=== PATIENT | male | born 1995 | race Caucasian/White ===

== ENCOUNTER 2022-12-12 12:10 | Emergency (ER) | payer OTHER, SELFPAY ==
--- NOTE | 2022-12-12 12:13 | ED_ITS ---
HPI - General Adult General Chief complaint: Syncope Stated complaint: low blood pressure Time Seen by Provider: 12/12/22 17:18 Related Data Allergies Allergy/AdvReac Type Severity Reaction Status Date / Time No Known Allergies Allergy Verified 12/12/22 12:13 [facility] Past Medical History Medical History (Updated 12/13/22 @ 00:01 by Background Daemon) Asthma Social History Social History Smoked in Last 30 Days: No Use of substances other than those prescribed or required for medical reasons: No Advance Directives: No Advance Directives Information Provided: Yes Physical Exam ED Vital Signs: Vital Signs - 24 hr 12/12/22 12:14 12/12/22 17:20 12/12/22 17:21 Temperature 98 F 98.6 F Pulse Rate 73 63 59 Respiratory Rate 18 16 Blood Pressure 118/72 112/60 112/67 Pulse Oximetry 98 98 Oxygen Delivery Method Room Air Room Air 12/12/22 17:21 12/12/22 17:27 12/12/22 18:21 Temperature Pulse Rate 62 63 Respiratory Rate Blood Pressure 133/84 124/71 Pulse Oximetry 100 Oxygen Delivery Method Room Air 12/12/22 18:21 12/12/22 20:00 Temperature 98 F 98.0 F Pulse Rate 58 65 Respiratory Rate 14 16 Blood Pressure 124/79 117/69 Pulse Oximetry 100 98 Oxygen Delivery Method Room Air Room Air BMI result Body Mass Index 23.7 Course Course Course Narrative: RME - 27 yo male who presents to the ER for evaluation of 1-2 weeks of possible low blood pressure, 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 He loses vision intermittently and has passed out once. He reports lightheadedness and several episodes of pre-syncope that are worse with position changes. VSS in triage. Plan: lab workup, EKG, orthostatic VS Reevaluation(s) Reevaluation #1: see Dr. Mckeon's note for full evaluation and treatment plan Medical Decision Making Lab Data 12/12/22 14:39 12/12/22 14:39 Labs: Lab Results 12/12/22 12/12/22 12/12/22 Range/Units 14:39 14:39 17:35 WBC 11.8 H (4.8-10.8) X10*3/uL RBC 4.20 L (4.60-5.80) X10*6/uL Hgb 13.0 L (14.0-18.0) g/dl Hct 39.4 L (42.0-52.0) % MCV 93.8 (80.0-98.0) fL MCH 31.0 (27.0-33.0) pg MCHC 33.0 (31.0-36.0) g/dl RDW 11.9 (11.0-16.0) % Plt Count 273 (160-400) X10*3/uL MPV 10.2 (9.4-12.4) fL Immature Gran % (Auto) 0.3 (0.0-0.4) % Neut % (Auto) 62.9 (45-73) % Lymph % (Auto) 24.3 (20-40) % [place] % (Auto) 8.7 (2-11) % Eos % (Auto) 3.0 (0-4) % Baso % (Auto) 0.8 (0-2) % Lymph # (Auto) 2.9 (1.2-4.9) X10*3/uL [place] # (Auto) 1.0 (0.1-1.2) X10*3/uL Eos # (Auto) 0.4 (0.0-0.4) X10*3/uL Baso # (Auto) 0.1 (0.0-0.2) X10*3/uL Abs Immat Gran (auto) 0.03 (0.00-0.03) X10*3/uL Absolute Neuts (auto) 7.4 (2.0-8.3) x10*3/uL Absolute Nucleated RBC 0.000 (0.0-0.012) X10*3/uL Nucleated RBC % (auto) 0.0 (0.0-0.2) /100WBC D-Dimer High Sensitivty NG/ML Sodium 140 (135-145) mmol/L Potassium 3.9 (3.3-5.1) mmol/L Chloride 104 (96-108) mmol/L Carbon Dioxide 28 (22-29) mmol/L Anion Gap 12 (12-20) BUN 21 H (9-16) mg/dL Creatinine 0.78 (0.5-1.4) mg/dL Estim Creat Clear Calc 157.5 Estimated GFR > 60 Random Glucose 88 (60-115) mg/dL Calcium 9.8 (8.4-10.2) mg/dL Magnesium 2.1 (1.6-2.6) mg/dL Total Bilirubin 0.3 (0.0-1.0) mg/dL Direct Bilirubin 0.1 (0.0-0.5) mg/dL AST 20 (5-37) U/L ALT 17 (0-40) U/L Alkaline Phosphatase 78 (39-117) U/L Total Protein 7.3 (6.5-8.0) g/dL Albumin 4.5 (3.5-5.0) g/dL Urine Color Urine Appearance Urine pH (5.0-9.0) Ur Specific [place] (1.005-1.025) Urine Protein (Neg-Trace) mg/dL Urine Glucose (UA) (Negative) mg/dL Urine Ketones (Negative) mg/dL Urine Blood (Negative) Urine Nitrite (Negative) Ur Leukocyte Esterase (Negative) COVID-19 (SREEDHAR) (Negative) COVID-19 Clin Com Influenza Type A (NICOLE) Negative (Negative) Influenza Type B (NICOLE) Negative (Negative) Influenza A & B Note See Note 12/12/22 12/12/22 12/12/22 Range/Units 17:35 18:08 18:08 WBC (4.8-10.8) X10*3/uL RBC (4.60-5.80) X10*6/uL Hgb (14.0-18.0) g/dl Hct (42.0-52.0) % MCV (80.0-98.0) fL MCH (27.0-33.0) pg MCHC (31.0-36.0) g/dl RDW (11.0-16.0) % Plt Count (160-400) X10*3/uL MPV (9.4-12.4) fL Immature Gran % (Auto) (0.0-0.4) % Neut % (Auto) (45-73) % Lymph % (Auto) (20-40) % [place] % (Auto) (2-11) % Eos % (Auto) (0-4) % Baso % (Auto) (0-2) % Lymph # (Auto) (1.2-4.9) X10*3/uL [place] # (Auto) (0.1-1.2) X10*3/uL Eos # (Auto) (0.0-0.4) X10*3/uL Baso # (Auto) (0.0-0.2) X10*3/uL Abs Immat Gran (auto) (0.00-0.03) X10*3/uL Absolute Neuts (auto) (2.0-8.3) x10*3/uL Absolute Nucleated RBC (0.0-0.012) X10*3/uL Nucleated RBC % (auto) (0.0-0.2) /100WBC D-Dimer High Sensitivty < 150 NG/ML Sodium (135-145) mmol/L Potassium (3.3-5.1) mmol/L Chloride (96-108) mmol/L Carbon Dioxide (22-29) mmol/L Anion Gap (12-20) BUN (9-16) mg/dL Creatinine (0.5-1.4) mg/dL Estim Creat Clear Calc Estimated GFR Random Glucose (60-115) mg/dL Calcium (8.4-10.2) mg/dL Magnesium (1.6-2.6) mg/dL Total Bilirubin (0.0-1.0) mg/dL Direct Bilirubin (0.0-0.5) mg/dL AST (5-37) U/L ALT (0-40) U/L Alkaline Phosphatase (39-117) U/L Total Protein (6.5-8.0) g/dL Albumin (3.5-5.0) g/dL Urine Color Dark Yellow Urine Appearance Clear Urine pH 5.5 (5.0-9.0) Ur Specific [place] 1.025 (1.005-1.025) Urine Protein Negative (Neg-Trace) mg/dL Urine Glucose (UA) Negative (Negative) mg/dL Urine Ketones Negative (Negative) mg/dL Urine Blood Negative (Negative) Urine Nitrite Negative (Negative) Ur Leukocyte Esterase Negative (Negative) COVID-19 (SREEDHAR) Negative (Negative) COVID-19 Clin Com See Note Influenza Type A (NICOLE) (Negative) Influenza Type B (NICOLE) (Negative) Influenza A & B Note Discharge Plan Discharge Clinical Impression: Dizziness, Acute viral syndrome Patient Disposition: Home, Self-Care Instructions: Dizziness (ED) Additional Instructions: Please follow-up with your primary care physician tomorrow. If you have any worsening or new symptoms, please return to the emergency room or call 911 Stand Alone Forms: Work/School Release Interventions: ED Discharge Assessment Last Done: 12/12/22 21:31 Discharge Date/Time: 12/12/22 21:31
[2022-12-12 12:14] VITALS: BP 118/72; PULSE 73; RESP 18; TEMP 36.6; O2SAT 98; BMI 23.7
--- NOTE | 2022-12-12 12:16 | ECG_ITS ---
Test Reason : cp Blood Pressure : / mmHG Vent. Rate : 070 BPM Atrial Rate : 070 BPM P-R Int : 128 ms QRS Dur : 086 ms QT Int : 358 ms P-R-T Axes : 058 056 064 degrees QTc Int : 386 ms Normal sinus rhythm Normal ECG No previous ECGs available Referred By: Pearl Peralta Electronically Signed By:ANEESH VILLALTA MD
[2022-12-12 14:43] LABS: MANUAL DIFF FLAG NO
[2022-12-12 14:45] LABS: Basophils Absolute Auto 0.1 X10*3/uL (0.0-0.2); Basophils Percent Auto 0.8 % (0-2); Eosinophils Absolute Auto 0.4 X10*3/uL (0.0-0.4); Hematocrit 39.4 % (42.0-52.0); Imm Gran Abs Auto 0.03 X10*3/uL (0.00-0.03); Imm Gran Pct Auto 0.3 % (0.0-0.4); Lymphocytes Absolute Auto 2.9 X10*3/uL (1.2-4.9); Lymphocytes Percent Auto 24.3 % (20-40); Mean Corpuscular Volume 93.8 fL (80.0-98.0); Mean Platelet Volume 10.2 fL (9.4-12.4); Monocytes Percent Auto 8.7 % (2-11); Neutrophils Absolute Auto 7.4 x10*3/uL (2.0-8.3); Neutrophils Percent Auto 62.9 % (45-73); Platelet Count 273 X10*3/uL (160-400); Red Cell Distribution Width 11.9 % (11.0-16.0); White Blood Count 11.8 X10*3/uL (4.8-10.8)
[2022-12-12 15:05] LABS: Alanine Aminotransferase 17 U/L (0-40); Albumin Level 4.5 g/dL (3.5-5.0); Alkaline Phosphatase 78 U/L (39-117); Anion Gap 12 (12-20); Aspartate Amino Transferase 20 U/L (5-37); Bilirubin Direct 0.1 mg/dL (0.0-0.5); Bilirubin Total 0.3 mg/dL (0.0-1.0); Blood Urea Nitrogen 21 mg/dL (9-16); Calcium 9.8 mg/dL (8.4-10.2); Carbon Dioxide 28 mmol/L (22-29); Chloride 104 mmol/L (96-108); Creatinine Clr Calc Pharmacy 157.5; Estimated Glomerular Filt Rate > 60; Glucose Random 88 mg/dL (60-115); Magnesium 2.1 mg/dL (1.6-2.6); Potassium 3.9 mmol/L (3.3-5.1); Sodium 140 mmol/L (135-145); Total Protein 7.3 g/dL (6.5-8.0)
[2022-12-12 17:20] VITALS: BP 112/60; PULSE 63; RESP 16; TEMP 37; O2SAT 98
[2022-12-12 17:21] VITALS: BP 112/67; BP 133/84; PULSE 59; PULSE 62
[2022-12-12 17:27] VITALS: BP 124/71; PULSE 63
--- NOTE | 2022-12-12 17:28 | ED_ITS ---
HPI - Syncope General Chief Complaint: Syncope Stated Complaint: low blood pressure Time Seen by Provider: 12/12/22 17:18 Source: patient Mode of arrival: ambulatory Limitations: no limitations History of Present Illness HPI narrative: Patient comes to the emergency room complaining of lightheadedness/near syncope episodes. Patient states that is worse with standing up and bending over. Patient denies any chest pain or shortness of breath. Patient states that he has not been sick, has been eating and drinking well, no nausea vomiting diarrhea. Also complaining of generalized weakness for last couple of days Related Data Allergies Allergy/AdvReac Type Severity Reaction Status Date / Time No Known Allergies Allergy Verified 12/12/22 12:13 Review of Systems Review of Systems: Constitutional : No Weight loss, No Fever, No Chills, No Night Sweats, No Fatigue, No Malaise ENT/Mouth : No Hearing loss, No Ear Pain, No Nasal Congestion, No Sinus Pain, No Hoarseness, No sore throat, No Rhinorrhea, No Swallowing Difficulty Eyes: No Eye Pain, No Swelling, No Redness, No Foreign Body, No Discharge, No Vision Changes Cardiovascular : No Chest Pain, No SOB, No Dyspnea on Exertion, No Orthopnea, No Edema, No Palpitations Respiratory : No Cough, No Sputum, No Wheezing, No Smoke Exposure, No Dyspnea Gastrointestinal : No Nausea, No Vomiting, No Diarrhea, No Constipation, No abdominal Pain, No Hematochezia, No Melena Genitourinary : no irregular bleeding, No Dysuria, No Urinary Frequency, No Hematuria, No Urinary Incontinence, No Urgency, No Flank Pain, No Urinary Flow Changes, No Hesitancy Musculoskeletal : No joint pain, No Myalgias, No Joint Swelling Skin : No Skin Lesions, No rash Neuro : No Weakness, No Numbness, No Paresthesias, complaining of dizziness/lightheadedness, near syncopal episodes, no headache wrist with bending over or sitting up Psych : No Anxiety/Panic, No Depression, No SI/HI/AH/VH, No Social Issues, Heme/Lymph: No Bruising, No Bleeding,No Lymphadenopathy Endocrine : No Polyuria, No Polydipsia, No Temperature Intolerance PMFSH Past Medical History Medical History (Updated 12/12/22 @ 21:10 by Renetta Rodriguez MD) Asthma Social History Social History Smoked in Last 30 Days: No Use of substances other than those prescribed or required for medical reasons: No Advance Directives: No Advance Directives Information Provided: Yes Physical Exam Vital Signs: Vital Signs: Last Vital Signs Temp 98.0 F 12/12/22 20:00 Pulse 65 12/12/22 20:00 Resp 16 12/12/22 20:00 BP 117/69 12/12/22 20:00 Pulse Ox 98 12/12/22 20:00 O2 Del Method Room Air 12/12/22 20:00 BMI result Body Mass Index 23.7 Const: Other: Appearance: Alert. Oriented X3. No acute distress. Eyes: Pupils equal, round and reactive to light. ENT: Pharynx normal. Neck: Normal inspection. Neck supple. No lymph nodes noted. No crepitus CVS: Normal heart rate and rhythm. Pulses normal. Normal S1 and S2 Respiratory: No respiratory distress. Breath sounds normal. No Wheezing. No rales Abdomen: Soft and nontender. No rigidity. No distention. Skin: Skin warm and dry. Normal skin color. Normal skin turgor. Severe acne in the back Extremities: No lower extremity edema. No Lacerations. No Rash Neuro: Oriented X 3. No motor deficit. No sensory deficit. Moving all extremities. No slurred speech. 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 He loses vision intermittently and has passed out once. He reports lightheadedness and several episodes of pre-syncope that are worse with position changes. VSS in triage. -patient's labs, EKG and orthostatic vitals pending Medical Decision Making Medical Decision Making MDM Narrative: -EKG my interpretation: Normal sinus rhythm, heart rate 70, no ST segment depression or elevation, no T-wave inversion, QTC 386 -troponin negative, D-dimer negative, orthostatic vitals negative, serology negative for influenza and COVID -patient ambulatory, asymptomatic at this time. Patient likely has a viral syndrome Differential Diagnosis Differential Diagnoses: The differential diagnosis associated with the presentation includes (Orthostatic hypotension, cardiac arrhythmia, vertigo, viral syndrome) Admission/Observation Consideration of admission/observation: Escalation of care including admission/observation considered (Patient complaining of multiple syncopal episodes over last 2 weeks, new onset, admission has been considered.) Lab Data MDM Lab Attestation statement: I reviewed the patient's lab results. 12/12/22 14:39 12/12/22 14:39 Labs: Lab Results 12/12/22 12/12/22 12/12/22 Range/Units 14:39 14:39 17:35 WBC 11.8 H (4.8-10.8) X10*3/uL RBC 4.20 L (4.60-5.80) X10*6/uL Hgb 13.0 L (14.0-18.0) g/dl Hct 39.4 L (42.0-52.0) % MCV 93.8 (80.0-98.0) fL MCH 31.0 (27.0-33.0) pg MCHC 33.0 (31.0-36.0) g/dl RDW 11.9 (11.0-16.0) % Plt Count 273 (160-400) X10*3/uL MPV 10.2 (9.4-12.4) fL Immature Gran % (Auto) 0.3 (0.0-0.4) % Neut % (Auto) 62.9 (45-73) % Lymph % (Auto) 24.3 (20-40) % [place] % (Auto) 8.7 (2-11) % Eos % (Auto) 3.0 (0-4) % Baso % (Auto) 0.8 (0-2) % Lymph # (Auto) 2.9 (1.2-4.9) X10*3/uL [place] # (Auto) 1.0 (0.1-1.2) X10*3/uL Eos # (Auto) 0.4 (0.0-0.4) X10*3/uL Baso # (Auto) 0.1 (0.0-0.2) X10*3/uL Abs Immat Gran (auto) 0.03 (0.00-0.03) X10*3/uL Absolute Neuts (auto) 7.4 (2.0-8.3) x10*3/uL Absolute Nucleated RBC 0.000 (0.0-0.012) X10*3/uL Nucleated RBC % (auto) 0.0 (0.0-0.2) /100WBC D-Dimer High Sensitivty NG/ML Sodium 140 (135-145) mmol/L Potassium 3.9 (3.3-5.1) mmol/L Chloride 104 (96-108) mmol/L Carbon Dioxide 28 (22-29) mmol/L Anion Gap 12 (12-20) BUN 21 H (9-16) mg/dL Creatinine 0.78 (0.5-1.4) mg/dL Estim Creat Clear Calc 157.5 Estimated GFR > 60 Random Glucose 88 (60-115) mg/dL Calcium 9.8 (8.4-10.2) mg/dL Magnesium 2.1 (1.6-2.6) mg/dL Total Bilirubin 0.3 (0.0-1.0) mg/dL Direct Bilirubin 0.1 (0.0-0.5) mg/dL AST 20 (5-37) U/L ALT 17 (0-40) U/L Alkaline Phosphatase 78 (39-117) U/L Total Protein 7.3 (6.5-8.0) g/dL Albumin 4.5 (3.5-5.0) g/dL Urine Color Urine Appearance Urine pH (5.0-9.0) Ur Specific [place] (1.005-1.025) Urine Protein (Neg-Trace) mg/dL Urine Glucose (UA) (Negative) mg/dL Urine Ketones (Negative) mg/dL Urine Blood (Negative) Urine Nitrite (Negative) Ur Leukocyte Esterase (Negative) COVID-19 (SREEDHAR) (Negative) COVID-19 Clin Com Influenza Type A (NICOLE) Negative (Negative) Influenza Type B (NICOLE) Negative (Negative) Influenza A & B Note See Note 12/12/22 12/12/22 12/12/22 Range/Units 17:35 18:08 18:08 WBC (4.8-10.8) X10*3/uL RBC (4.60-5.80) X10*6/uL Hgb (14.0-18.0) g/dl Hct (42.0-52.0) % MCV (80.0-98.0) fL MCH (27.0-33.0) pg MCHC (31.0-36.0) g/dl RDW (11.0-16.0) % Plt Count (160-400) X10*3/uL MPV (9.4-12.4) fL Immature Gran % (Auto) (0.0-0.4) % Neut % (Auto) (45-73) % Lymph % (Auto) (20-40) % [place] % (Auto) (2-11) % Eos % (Auto) (0-4) % Baso % (Auto) (0-2) % Lymph # (Auto) (1.2-4.9) X10*3/uL [place] # (Auto) (0.1-1.2) X10*3/uL Eos # (Auto) (0.0-0.4) X10*3/uL Baso # (Auto) (0.0-0.2) X10*3/uL Abs Immat Gran (auto) (0.00-0.03) X10*3/uL Absolute Neuts (auto) (2.0-8.3) x10*3/uL Absolute Nucleated RBC (0.0-0.012) X10*3/uL Nucleated RBC % (auto) (0.0-0.2) /100WBC D-Dimer High Sensitivty < 150 NG/ML Sodium (135-145) mmol/L Potassium (3.3-5.1) mmol/L Chloride (96-108) mmol/L Carbon Dioxide (22-29) mmol/L Anion Gap (12-20) BUN (9-16) mg/dL Creatinine (0.5-1.4) mg/dL Estim Creat Clear Calc Estimated GFR Random Glucose (60-115) mg/dL Calcium (8.4-10.2) mg/dL Magnesium (1.6-2.6) mg/dL Total Bilirubin (0.0-1.0) mg/dL Direct Bilirubin (0.0-0.5) mg/dL AST (5-37) U/L ALT (0-40) U/L Alkaline Phosphatase (39-117) U/L Total Protein (6.5-8.0) g/dL Albumin (3.5-5.0) g/dL Urine Color Dark Yellow Urine Appearance Clear Urine pH 5.5 (5.0-9.0) Ur Specific [place] 1.025 (1.005-1.025) Urine Protein Negative (Neg-Trace) mg/dL Urine Glucose (UA) Negative (Negative) mg/dL Urine Ketones Negative (Negative) mg/dL Urine Blood Negative (Negative) Urine Nitrite Negative (Negative) Ur Leukocyte Esterase Negative (Negative) COVID-19 (SREEDHAR) Negative (Negative) COVID-19 Clin Com See Note Influenza Type A (NICOLE) (Negative) Influenza Type B (NICOLE) (Negative) Influenza A & B Note Independent Interpretation I performed an independent interpretation of an: EKG Discharge Plan Discharge Clinical Impression: Dizziness, Acute viral syndrome Patient Disposition: Home, Self-Care Instructions: Dizziness (ED) Additional Instructions: Please follow-up with your primary care physician tomorrow. If you have any worsening or new symptoms, please return to the emergency room or call 911 Stand Alone Forms: Work/School Release
--- NOTE | 2022-12-12 17:36 | MHC.EDTECH ---
this pct just assumed care of patient ,vitals sign taken orthostatics vitals sign taken ,flu and covid swab collected and sent to lab ,
--- NOTE | 2022-12-12 18:14 | MHC.EDTECH ---
PATIENT D DIMER DRAWN AND URINE SAMPLE COLLECTED AND SENT TO LAB ,PT RESTING QUIETLY IN BED .
[2022-12-12 18:16] LABS: COVID-19 Test Negative (Negative); IDNOW Serial# 9DB6401D
[2022-12-12 18:17] LABS: IDNOW Serial# BCCEAD1C; Influenza A Negative (Negative); Influenza B2 Negative (Negative)
[2022-12-12 18:20] LABS: Appearance Urine Clear; Color Urine Dark Yellow; Glucose Urine UA Negative (Negative); Leukocyte Esterase Urine Negative (Negative); Nitrite Urine Negative (Negative); PH 5.5 (5.0-9.0); Specific Gravity - Urine 1.025 (1.005-1.025); Urine Blood Negative (Negative); Urine Ketones Negative (Negative); Urine Protein Negative (Neg-Trace)
[2022-12-12 18:21] VITALS: BP 124/79; PULSE 58; RESP 14; TEMP 36.6; O2SAT 100
[2022-12-12 18:29] LABS: D Dimer High Sensitivity < 150 NG/ML
[2022-12-12 20:00] VITALS: BP 117/69; PULSE 65; RESP 16; TEMP 36.7; O2SAT 98
--- NOTE | 2022-12-12 20:55 | MHC.EDTECH ---
patient vitals sign taken ,pt is having a sandwich and a dustin sy for snack ,pt mom at bedside .
== END 2022-12-12 21:31 | disposition home or self-care (01) ==
PROVIDERS: Physician Assistant; Emergency Provider Emergency Medicine
DX: B34.9 Viral infection, unspecified (principal); R42 Dizziness and giddiness; Z20.822 Contact with and (suspected) exposure to COVID-19
CPT/HCPCS: 36415; 80048; 80076; 81003; 83735; 85025; 85379; 87502; 87635; 93005; 99284; 99285

== ENCOUNTER → 2022-12-12 12:16 | Outpatient (BNV) | payer OTHER, SELFPAY | PROVIDERS: Visit Provider Internal Medicine Cardiovascular Disease | DX: R07.9 Chest pain, unspecified (principal) | CPT/HCPCS: 93010 ==

== ENCOUNTER 2023-11-01 13:06 | Outpatient (AMB) | payer OTHER, SELFPAY ==
[2023-11-01 13:14] VITALS: BP 100/66; PULSE 77; RESP 14; TEMP 36.1; O2SAT 99; BMI 18.7
--- NOTE | 2023-11-01 13:14 | A.OFFPC_ITS ---
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 from nose & Anus Small Products Assembler Required: No Accompanied by: Self / Same As Patient Allergies No Known Allergies Allergy (Verified 11/01/23 13:28) Medication List - Last Reconciled 11/01/23 by Dinah Fraser CNP [id number] 250-250-65 mg (Excedrin Extra Strength) 1 tab PO Q4-6H PRN Tobacco use date assessed: 11/01/23 Dental Screening Dental Screen Date: 11/01/23 Did you have a dental visit in the last 12 months?: No Did you have a dental problem in the last 6 months where you did not have access to dental care?: No Was dental information given to patient?: Yes HPI HPI Comments History of Present Illness Details New patient Prior PCP:?LOR Maynard, ? Leonard Martinez (practice name) Last office visit/CPE: About 3-4 years Acute issue(s): Migraine -He is on Excedrin extra-strength 1 tab p.o. Q 4-6 hours p.r.n. He notes frequent migraine, about 3 times daily. He had migraine at childhood which resolved, recured 2 years ago, and progressively worsened in the past 1 year. He reports adequate hydration Lightheadedness -Ongoing for the past 1 year, especially when changing positions and prolonged standing. 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 He became lightheaded as he was picking up a box while working a year ago and his boss found him unconscious. He has been on medical leave since. He denies head injury or trauma. 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 He notes that he is on combivent and a nebulizer (does not recall name). He denies h/o asthma SurgHx: None FHx: None SocHx: Former cigarette smoker, smoked an average of 1 pack a day for about 11 years and quit 1 year ago. Does not drink alcohol. He vapes about 2 puffs daily and has been vaping for 4 years. No recreational drugs. He notes that he is sexually active, in a monogamous relationship, and has no concerns for STD [facility] Medical History (Updated 11/01/23 @ 14:09 by Dinah Fraser CNP) IBS (irritable bowel syndrome) Imbalance Memory loss Lyme disease Migraines Palpitations Light headedness Asthma Surgical History [place] teeth extracted Social History Housing: House Patient Tobacco Use Status: Never used Tobacco e-Cigarette/Vaping Use: Currently Using service: Yes Current occupational status: other Cognitive needs: No Hearing needs: No Vision needs: No Questionnaire PHQ-9 Over the last 2 weeks, how often have you been bothered by any of the following problems? 1. Little interest or pleasure in doing things: not at all 2. Feeling down, depressed, or hopeless: not at all 3. Trouble falling or staying asleep, or sleeping too much: not at all 4. Feeling tired or having little energy: nearly every day 5. Poor appetite or overeating: not at all 6. Feeling bad about yourself - or that you are a failure or have let yourself or your family down: not at all 7. Trouble concentrating on things, such as reading the newspaper or watching television: not at all 8. Moving or speaking so slowly that other people could have noticed. Or the opposite - being so fidgety or restless that you have been moving around a lot more than usual: not at all 9. Thoughts that you would be better off or of hurting yourself in some way: not at all Total score: 3 Depression Screening Interpretation: Negative Depression Screening Done: Yes 65034 - PHQ-9 Billing: Yes Source: Developed by Drs. Cal Melgoza, Ana Ramos, Neo Welch and colleagues, with an educational ayah from [email or web address]. Thrive Questionnaire Date Thrive assessed: 11/01/23 I am a: Patient What is your living situation today?: I have a steady place to live Within the past 12 months, did the food you bought not last and you didn't have the money to get more?: Never true Within the past 12 months, did you worry whether your food would run out before you got money to buy more?: Never true Do you have trouble paying for medicines?: No Do you have trouble getting transportation to medical appointments?: No Do you have trouble paying your heating and electricity bill?: No Do you have trouble taking care of your child, family member or friend?: No Do you have trouble with day-to-day activities such as bathing, preparing meals, shopping, managing finances, etc.?: No Are you currently unemployed and looking for a job?: No Are you interested in more education?: No Please select the resources that you would like help with: None Currently or been in a relationship where the following occur: no concerns reported THRIVE Score: 0 AUDIT C Alcohol Use Questionnaire (AUDIT-C) 1. How often do you have a drink containing alcohol?: Never 3. How often do you have six or more drinks on one occasion?: Never Total Score: 0 [place]-7 AMB Questionnaire [place]-7 Date [place] - 7 assessed: 11/01/23 Feeling nervous, anxious, or on edge: 0 = Not at all Not being able to stop or control worryin = Not at all Worrying too much about different things: 0 = Not at all Trouble relaxin = Not at all Being so restless that it is hard to sit still: 0 = Not at all Becoming easily annoyed or irritable: 3 = Nearly every day Feeling afraid as if something awful might happen: 0 = Not at all Total [place]-7 score (0-4 normal; 5-9 mild; 10-14 moderate; 15-21 severe): 3 Source: Developed by Drs. aCl Melgoza, Ana Ramos, Neo Welch and colleagues, with an educational ayah from [email or web address]. [place]-7 Assessment Billing [place]-7 Assessment Tool: [place]-7 Assessment 29597 ACT Questionnaire In the past 4 weeks, how much of the time did your asthma keep you from getting as much done at work, school or at home?: None of the time During the past 4 weeks, how often have you had shortness of breath?: 1-2 times a week During the past 4 weeks, how often did your asthma symptoms wake you up at night or earlier than usual in the morning?: Not at all During the past 4 weeks, how often have you had to use your rescue inhaler or nebulizer medication?: 2-3 times a week How would you rate your asthma control during the past 4 weeks?: Well controlled ACT Interpretation: Positive Score: 21 Physical exam (Primary Care) Vital Signs: Last Vital Signs Temp 97 F 11/01/23 13:14 Pulse 77 11/01/23 13:14 Resp 14 11/01/23 13:14 BP 100/66 11/01/23 13:14 Pulse Ox 99 11/01/23 13:14 Oxygen Delivery Method Room Air 11/01/23 13:14 BMI result Body Mass Index 18.7 Tobacco/Smoking Status: Tobacco use Status Tobacco use date assessed 11/01/23 11/01/23 13:27 Patient Tobacco Use Status Never used Tobacco 11/01/23 13:27 e-Cigarette/Vaping Use Currently Using 11/01/23 13:27 PHQ-9: PHQ-9 Score PHQ-9: Total score 3 11/01/23 15:26 Depression Screening Interpretation: Negative Thrive Assessment: Date of Thrive Assessment Date Thrive assessed 11/01/23 11/01/23 13:27 Currently or been in a relationship where the following occur: no concerns reported Assessment and Plan Assessment & Plan (1) Normal physical examination, routine: Code(s): Z00.00 - Encounter for general adult medical examination without abnormal findings Plan: No significant physical restrictions or limitations noted Continue current treatment regimen Healthy diet and routine exercise encouraged Encouraged to establish with a dentist for routine dental care Advised to get lab work done and follow-up in 2 weeks for labs review or sooner with symptoms or concerns (2) Migraines: Code(s): G43.909 - Migraine, unspecified, not intractable, without status migrainosus Plan: Frequent migraines, at least 3 times a day Excedrin has not been effective Sumatriptan ordered. Advised to take as prescribed. Instructed on the risks, benefits, and potential adverse reaction of the medication Advised to stop taking Excedrin Follow-up with worsening or new symptoms Verbalized understanding and agreed with the treatment plan (3) Light headedness: Code(s): R42 - Dizziness and giddiness Plan: Chronic lightheadedness especially with changing positions and prolonged standing No head trauma or injury He was evaluated in the ED with no underlying cause Advised to change positions slowly to prevent lightheadedness Will check labs and make changes as needed Follow-up with worsening or new symptoms Verbalized understanding and agreed with the treatment plan (4) IBS (irritable bowel syndrome): Code(s): K58.9 - Irritable bowel syndrome without diarrhea Plan: No acute symptoms (5) Engages in vaping: Code(s): Z72.89 - Other problems related to lifestyle Plan: He vapes about 2 puffs daily and has been vaping for 4 years Instructed on the health risks and complications of vaping and encouraged to stop vaping He has no desire to stop vaping at this time and notes that he would do so when he is ready He declines medication treatment at this time He may contact his PCP if he changes mind on medication management Verbalized understanding and agreed with the plan (6) Laboratory tests ordered as part of a complete physical exam (CPE): Code(s): Z00.00 - Encounter for general adult medical examination without abnormal findings Plan: Fasting labs ordered in preparation of a complete physical exam. Advised to fast for at least 10 hours before getting labs drawn. May drink water Verbalized understanding and agreed with treatment plan. Orders: Orders Lipid Panel Today Z00.00 - Encounter for general adult medical examination without abnormal findings UA CC w/rflx Micro + Cult Today Z00.00 - Encounter for general adult medical examination without abnormal findings Complete Blood Count Auto Diff Today Z00.00 - Encounter for general adult medical examination without abnormal findings Comprehensive [place]. Panel Fast Today Z00.00 - Encounter for general adult medical examination without abnormal findings TSH reflex Free T4 Today Z00.00 - Encounter for general adult medical examination without abnormal findings Medications: New sumatriptan succinate take 1 tab at onset of headache; if no relief may repeat 1 tab after at least 2 hrs; max = 4 tabs/24 hr PO 30 tabs 3RF Coding Level of Care Code New Pt Level 4 (02100) New Pt Prev Care 18-39yr(61758 Diagnoses Normal physical examination, routine Z00.00 Migraines G43.909 Light headedness R42 IBS (irritable bowel syndrome) K58.9 Engages in vaping Z72.89 Laboratory tests ordered as part of a complete physical exam (CPE) Z00.00 Additional Codes [place]-7 Assessment Billing - [place]-7 Assessment Tool: [place]-7 Assessment 68473 ([id number])
== END 2023-11-01 14:11 | disposition home or self-care (01) ==
PROVIDERS: Visit Provider Nurse Practitioner Family
DX: Z00.00 Encounter for general adult medical examination without abnormal findings (principal); G43.909 Migraine, unspecified, not intractable, without status migrainosus; R42 Dizziness and giddiness; K58.9 Irritable bowel syndrome, unspecified; Z72.89 Other problems related to lifestyle
CPT/HCPCS: 99204; 99385

== ENCOUNTER 2023-11-18 13:32 | Outpatient (REF) | payer OTHER, SELFPAY ==
[2023-11-18 17:59] LABS: MANUAL DIFF FLAG NO
[2023-11-18 18:03] LABS: Appearance Urine Clear; Color Urine Yellow; Glucose Urine UA Negative (Negative); Leukocyte Esterase Urine Negative (Negative); Nitrite Urine Negative (Negative); PH 5.5 (5.0-9.0); Specific Gravity - Urine >= 1.030 (1.005-1.025); Urine Blood Negative (Negative); Urine Ketones Trace mg/dL (Negative); Urine Protein Negative (Neg-Trace)
[2023-11-18 18:04] LABS: Basophils Absolute Auto 0.1 X10*3/uL (0.0-0.2); Basophils Percent Auto 0.7 % (0-2); Eosinophils Absolute Auto 0.3 X10*3/uL (0.0-0.4); Eosinophils Percent Auto 4.2 % (0-4); Hematocrit 41.8 % (42.0-52.0); Hemoglobin 14.2 g/dl (14.0-18.0); Imm Gran Abs Auto 0.02 X10*3/uL (0.00-0.03); Imm Gran Pct Auto 0.3 % (0.0-0.4); Lymphocytes Absolute Auto 2.6 X10*3/uL (1.2-4.9); Lymphocytes Percent Auto 36.8 % (20-40); Mean Corpuscular Hemoglobin 31.6 pg (27.0-33.0); Mean Corpuscular Volume 93.1 fL (80.0-98.0); Mean Platelet Volume 10.8 fL (9.4-12.4); Monocytes Absolute Auto 0.6 X10*3/uL (0.1-1.2); Monocytes Percent Auto 8.7 % (2-11); Neutrophils Absolute Auto 3.5 x10*3/uL (2.0-8.3); Neutrophils Percent Auto 49.3 % (45-73); Platelet Count 282 X10*3/uL (160-400); Red Blood Count 4.49 X10*6/uL (4.60-5.80); Red Cell Distribution Width 11.7 % (11.0-16.0); White Blood Count 7.1 X10*3/uL (4.8-10.8)
[2023-11-18 18:25] LABS: Alanine Aminotransferase 20 U/L (0-40); Alkaline Phosphatase 59 U/L (39-117); Anion Gap 14 (12-20); Aspartate Amino Transferase 22 U/L (5-37); Bilirubin Total 0.5 mg/dL (0.0-1.0); Blood Urea Nitrogen 21 mg/dL (9-16); Calcium 10.5 mg/dL (8.4-10.2); Carbon Dioxide 29 mmol/L (22-29); Chloride 103 mmol/L (96-108); Cholesterol 141 mg/dL (<200); Estimated Glomerular Filt Rate > 60; Glucose Fasting 78 mg/dL (60-99); HDL Cholesterol 46 mg/dL (>40); LDL Cholesterol Calculated 82 mg/dL (<100); Potassium 3.9 mmol/L (3.3-5.1); Sodium 142 mmol/L (135-145); Total Protein 7.7 g/dL (6.5-8.0); Triglycerides 69 mg/dL (<150)
[2023-11-18 18:41] LABS: TSH reflex Free T4 1.88 uIU/mL (0.32-4.0)
== END 2023-11-18 13:33 | disposition home or self-care (01) ==
LOC: HO.WFDLDS 13:32
PROVIDERS: Visit Provider Nurse Practitioner Family
DX: Z00.00 Encounter for general adult medical examination without abnormal findings (principal)
CPT/HCPCS: 36415; 80053; 80061; 81003; 84443; 85025

== ENCOUNTER 2023-11-25 11:10 | Outpatient (AMB) | payer OTHER, SELFPAY ==
--- NOTE | 2023-11-25 11:17 | A.OFFPC_ITS ---
Vital Signs 11/25/23 11:24 Weight 135 lb BP 108/70 Blood Pressure Location Rt brachial Position Sitting Respiration 12 Pulse 100 Pulse Source Pulse Oximeter Temp 98.1 F Temp Source Temporal Artery Scan Pulse Oximetry (%) 98 Oxygen Delivery Method Room Air Intake Visit Reasons: follow up blood work Intake Note: patient here for follow on labs. Brass Reclaimer Required: No Allergies No Known Allergies Allergy (Verified 11/25/23 11:43) Medication List - Last Reconciled 11/25/23 by Dinah Fraser CNP sumatriptan succinate take 1 tab at onset of headache; if no relief may repeat 1 tab after at least 2 hrs; max = 4 tabs/24 hr PO Tobacco use date assessed: 11/01/23 Dental Screening Dental Screen Date: 11/01/23 HPI HPI Comments History of Present Illness Details 28-year-old male presents for review of recent lab work. He notes that his migraine symptoms has not improved. He gets migraines at least once daily. He has been taking Excedrin with significant improvement, 7/10 to 2/10 on the pain scale. He has not picked up Sumatriptan that was recently prescribed. He reports continued lightheadedness and 2/10 migraine at this time. No other symptoms at this time. [facility] Medical History (Updated 11/01/23 @ 14:09 by Dinah Fraser CNP) IBS (irritable bowel syndrome) Imbalance Memory loss Lyme disease Migraines Palpitations Light headedness Asthma Surgical History [place] teeth extracted Social History Housing: House Patient Tobacco Use Status: Never used Tobacco e-Cigarette/Vaping Use: Currently Using service: Yes Current occupational status: other Cognitive needs: No Hearing needs: No Vision needs: No Questionnaire Thrive Questionnaire Date Thrive assessed: 11/01/23 [place]-7 AMB Questionnaire [place]-7 Date [place] - 7 assessed: 11/01/23 Source: Developed by Drs. Cal Melgoza, Ana Ramos, Neo Welch and colleagues, with an educational ayah from [employer]. Review of Systems Const Details: Const Denies chills, Denies fatigue, Denies fever(s), Reports headache(s) and Denies weakness ENT Denies dizziness and Denies headache(s) Card Denies chest pain, Reports lightheadedness, Denies dyspnea and Denies other (Palpitations) Resp Denies cough, Denies dyspnea, Denies wheezing and Denies other ( shortness of breath) GI Denies abdominal pain, Denies melena, Denies hematochezia, Denies change in bowel habits, Denies dyspepsia and Denies nausea Denies hematuria and Denies dysuria Musc Denies abnormal gait, Denies myalgias, Denies arthralgias, Denies numbness and Denies tingling Skin/Breast Denies rash, Denies unusual bruising and Denies wounds Neuro Denies abnormal gait, Denies dizziness, Denies headache(s), Denies memory loss, Denies numbness, Denies Sensory deficit (Neuro), Denies tingling and Denies weakness Psych Denies anxiety, Denies depression, Denies memory loss Endo Denies cold intolerance, Denies fatigue, Denies heat intolerance, Denies polydipsia and Denies polyuria Aller/Immun Denies wheezing Physical exam (Primary Care) Vital Signs: Last Vital Signs Temp 98.1 F 11/25/23 11:24 Pulse 100 11/25/23 11:24 Resp 12 11/25/23 11:24 BP 108/70 11/25/23 11:24 Pulse Ox 98 11/25/23 11:24 Oxygen Delivery Method Room Air 11/25/23 11:24 Tobacco/Smoking Status: Tobacco use Status Tobacco use date assessed 11/01/23 11/25/23 11:18 Patient Tobacco Use Status Never used Tobacco 11/25/23 11:18 e-Cigarette/Vaping Use Currently Using 11/25/23 11:18 Thrive Assessment: Date of Thrive Assessment Date Thrive assessed 11/01/23 11/25/23 11:18 Const Other: General: no acute distress and well developed Nutritional Appearance: well nourished Orientation/consciousness: patient oriented x3 HENMT Head: Yes normocephalic and Yes atraumatic Eyes General: appearance normal, both eyes and all related structures Pupils: Equal, round and reactive pupils present EOM: EOMs intact bilaterally Resp Effort & Inspection: normal respiratory effort Auscultation: clear to auscultation bilaterally Cardio Rate: regular rate Rhythm: regular rhythm Heart sounds: S1 normal heart sound present, S2 normal heart sound present, no gallops, no murmurs and no rubs GI Palpation (GI): No Abdominal aortic bruit present, Soft to palpation, nontender, No hepatosplenomegaly present and No Rebound tenderness present Auscultation: normal bowel sounds General: Yes no CVA tenderness Back/Spine/Pelvis Back: no CVA tenderness Cervical Spine: cervical ROM normal and No Cervical spine tenderness Thoracic/Lumbar Spine: thoraco-lumbar ROM normal, No pain with thoraco-lumbar ROM, No thoracic spinal tenderness and No lumbar spinal tenderness Extrem General: Yes normal to inspection, No edema and No calf tenderness Skin General: warm and dry. Normal skin color. Normal skin turgor Neuro General: patient oriented x3, gait normal and no focal neuro deficit Cranial nerves: Yes Equal, round and reactive pupils present Cognition (Neuro): normal cognition Gait exam (Neuro): Normal gait present Sensory Exam: No Sensory deficit (Neuro) Psych Appearance: grossly normal Affect: normal affect Attitude: cooperative Thought process: Normal thought process present Assessment and Plan Assessment & Plan (1) Light headedness: Code(s): R42 - Dizziness and giddiness Plan: Chronic lightheadedness Reports continued lightheadedness and 2/10 migraine at this time He has been taking Excedrin with significant improvement. He has not picked up recently prescribed sumatriptan Encouraged to pick up man sumatriptan and take as prescribed Referred to [facility] Neurology Encouraged to schedule his next physical for a year from his last Return with worsening or new symptoms Verbalized understanding and agreed with the treatment plan Recent lab results with unremarkable findings (2) Migraines: Code(s): G43.909 - Migraine, unspecified, not intractable, without status migrainosus Plan: As above Orders: Referrals Neurology Referral G43.909 - Migraine, unspecified, not intractable, without status migrainosus, R42 - Dizziness and giddiness Coding Level of Care Code Est Pt Level 4 (93822) Complex EM visit Add On G2211 Diagnoses Light headedness R42 Migraines G43.909
[2023-11-25 11:24] VITALS: BP 108/70; PULSE 100; RESP 12; TEMP 36.7; O2SAT 98
== END 2023-11-25 11:59 | disposition home or self-care (01) ==
PROVIDERS: Visit Provider Nurse Practitioner Family
DX: R42 Dizziness and giddiness (principal); G43.909 Migraine, unspecified, not intractable, without status migrainosus
CPT/HCPCS: 99214; G2211

== ENCOUNTER 2024-02-04 10:56 | Outpatient (AMB) | payer OTHER, SELFPAY ==
--- NOTE | 2024-02-04 11:04 | A.OFFPC_ITS ---
Vital Signs 02/04/24 11:09 Height 6 ft Weight 135 lb 2 oz BMI 18.3 BP 100/72 Blood Pressure Location Lt brachial Position Sitting Respiration 16 Pulse 66 Pulse Source Pulse Oximeter Temp 97.6 F Temp Source Oral Pulse Oximetry (%) 99 Oxygen Delivery Method Room Air Intake Visit Reasons: Follow Up Rx Intake Note: patient here to follow up on script. Probate Lawyer Required: No Allergies No Known Allergies Allergy (Verified 02/04/24 11:07) Tobacco use date assessed: 02/04/24 Dental Screening Dental Screen Date: 02/04/24 Did you have a dental visit in the last 12 months?: No Did you have a dental problem in the last 6 months where you did not have access to dental care?: No Was dental information given to patient?: Patient has dentist HPI HPI Comments History of Present Illness Details 28-year-old male, accompanied by his mot her, presents for migraines follow-up His mother is his healthcare proxy He notes notes that he stopped taking Sumatriptan after two doses due to adverse reactions. He experienced worsening migraine and burning sensation to the tip of the fingers of both hands. He has been taking Excredin migraine without impro vement. His mom notes that the patient has had migraines since adolescence. According to the patient's mom, the patient was seen by Neurology, briefly, at [facility]. 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 He reports associated unsteady gait, fatigue, and weakness. He also reports ongoing dark red blood stools for the past 6 months with occasional abdominal pain and diarrhea, no constipation, no n/v He denies recreational drugs The patient's mom notes that she has chronic Lyme disease The patient's mom notes that the patient has been using a cane for ambulation. She notes that a wheelchair will be more effective. She also requests a shower chair with back support [facility] Medical History (Updated 02/04/24 @ 13:38 by Dinah Fraser CNP) IBS (irritable bowel syndrome) Imbalance Memory loss Lyme disease Migraines Palpitations Light headedness Asthma Surgical History Cushing teeth extracted Social History Housing: House Patient Tobacco Use Status: Never used Tobacco e-Cigarette/Vaping Use: Currently Using service: Yes Current occupational status: other Cognitive needs: No Hearing needs: No Vision needs: No Questionnaire Thrive Questionnaire Date Thrive assessed: 11/01/23 AUDIT C Alcohol Use Questionnaire (AUDIT-C) 1. How often do you have a drink containing alcohol?: Never Total Score: 0 [place]-7 AMB Questionnaire [place]-7 Date [place] - 7 assessed: 11/01/23 Source: Developed by Drs. Cal Melgoza, Ana Ramos, Neo Welch and colleagues, with an educational ayah from [email or web address]. Review of Systems Const Details: Const Denies chills, Denies fatigue, Denies fever(s), Reports headache(s) and Reports weakness ENT Denies dizziness and Reports headache(s) Card Denies chest pain, Denies lightheadedness, Denies dyspnea and Denies other (Palpitations) Resp Denies cough, Denies dyspnea, Denies wheezing and Denies other ( shortness of breath) GI Reports as per HPI Denies hematuria and Denies dysuria Musc Denies myalgias, Denies arthralgias, Denies numbness and Denies tingling Skin/Breast Denies rash, Denies unusual bruising and Denies wounds Neuro Denies dizziness, Denies memory loss, Denies numbness, Denies Sensory deficit (Neuro), Denies tingling Psych Denies anxiety, Denies depression, Denies memory loss Endo Denies cold intolerance, Denies heat intolerance, Denies polydipsia and Denies polyuria Aller/Immun Denies wheezing Physical exam (Primary Care) Vital Signs: Last Vital Signs Temp 97.6 F 02/04/24 11:09 Pulse 66 02/04/24 11:09 Resp 16 02/04/24 11:09 BP 100/72 02/04/24 11:09 Pulse Ox 99 02/04/24 11:09 Oxygen Delivery Method Room Air 02/04/24 11:09 BMI result Body Mass Index 18.3 Tobacco/Smoking Status: Tobacco use Status Tobacco use date assessed 02/04/24 02/04/24 11:09 Patient Tobacco Use Status Never used Tobacco 02/04/24 11:05 e-Cigarette/Vaping Use Currently Using 02/04/24 11:05 Thrive Assessment: Date of Thrive Assessment Date Thrive assessed 11/01/23 02/04/24 11:05 Const Other: General: no acute distress and well developed Nutritional Appearance: well nourished Orientation/consciousness: patient oriented x3 HENMT Head: Yes normocephalic and Yes atraumatic Eyes General: appearance normal, both eyes and all related structures Pupils: Equal, round and reactive pupils present EOM: EOMs intact bilaterally Resp Effort & Inspection: normal respiratory effort Auscultation: clear to auscultation bilaterally Cardio Rate: regular rate Rhythm: regular rhythm Heart sounds: S1 normal heart sound present, S2 normal heart sound present, no gallops, no murmurs and no rubs GI Palpation (GI): No Abdominal aortic bruit present, Soft to palpation, nontender, No hepatosplenomegaly present and No Rebound tenderness present Auscultation: normal bowel sounds General: Yes no CVA tenderness Back/Spine/Pelvis Back: no CVA tenderness Cervical Spine: cervical ROM normal and No Cervical spine tenderness Thoracic/Lumbar Spine: thoraco-lumbar ROM normal, No pain with thoraco-lumbar ROM, No thoracic spinal tenderness and No lumbar spinal tenderness Extrem General: Yes normal to inspection, No edema and No calf tenderness. Bilateral upper extremity strength strong and equal, left lower extremity weaker than right Skin General: warm and dry. Normal skin color. Normal skin turgor Neuro General: patient oriented x4, gait unsteady, appears drowsy, bilateral upper extremity strength strong and equal, left lower extremity weaker than right Cranial nerves: Yes Equal, round and reactive pupils present Cognition (Neuro): normal cognition Gait exam (Neuro): Unsteady gait present Sensory Exam: No Sensory deficit (Neuro) Psych Appearance: grossly normal Affect: Flat affect Attitude: cooperative Thought process: Normal thought process present Assessment and Plan Assessment & Plan (1) Migraines: Code(s): G43.909 - Migraine, unspecified, not intractable, without status migrainosus Plan: Reports chronic persistent migraine for since adolescence. He notes associated unsteady gait, fatigue, and weakness. He has been taking Excedrin migraines without relief. He stopped taking sumatriptan due to adverse reactions such as increased headaches and burning sensation to his fingertips. His headache started at adolescence. No history of seizures. He was seen by Neurology, briefly, in the [facility]. His pull over machine operator, who is from the [facility], also followed his migraines. He was recently referred to [facility] Neurology; however, the referral was declined because he had not tried a first-line treatment for migraines He is alert and oriented x4, speech is clear but slow to respond, appears drowsy Normal lungs and heart sounds Gait is unsteady. Bilateral upper extremity strength strong and equal, left lower extremity weaker than right. No overt signs of injury/trauma Will trial topiramate 25 mg twice daily. Verbalized to take as prescribed. Instructed on the risks, benefits, and potential adverse reactions of the medications Will check blood work and drug screen. Will also check Lyme disease titer due to his mother's history New urgent referral made to [facility] Neurology Encouraged to get blood work done. Will review results and make changes as needed. Will order an MRI if lab results are unrevealing Walker and shower chair ordered as requested by his mom Patient's mom advised to sign a release for the patient's PCP to obtain his old Neurology and pull over machine operator records Follow-up in 1 month or sooner with worsening or new symptoms Verbalized understanding and agreed with the treatment plan (2) Fatigue: Code(s): R53.83 - Other fatigue Plan: Plan as above (3) Weakness: Code(s): R53.1 - Weakness Plan: Plan as above (4) Drowsiness: Code(s): R40.0 - Somnolence Plan: Plan as above (5) Unsteady gait: Code(s): R26.81 - Unsteadiness on feet Plan: Plan as above (6) Bloody stools: Code(s): K92.1 - Melena Plan: He reports ongoing dark red blood stools for the past 6 months with occasional abdominal pain and diarrhea, no constipation, no n/v No acute symptoms at this time Abdomen is soft, nontender, nondistended, active bowel sounds x4 Will check CBC and make changes as needed Adequate hydration encouraged Referred to [facility] gastroenterology Follow-up with worsening or new symptoms Verbalized understanding and agreed with the treatment plan Orders: Orders Comprehensive Met. Panel Today G43.909 - Migraine, unspecified, not intractable, without status migrainosus, R40.0 - Somnolence Complete Blood Count Auto Diff Today G43.909 - Migraine, unspecified, not intractable, without status migrainosus, R40.0 - Somnolence Lyme IgG/IgM w/reflex to WB Today G4 - Migraine, unspecified, not intractable, without status migrainosus, R40.0 - Somnolence Benzodiazepine,GC/MS Urine Today G4. - Migraine, unspecified, not intractable, without status migrainosus, R40.0 - Somnolence Vitamin D 25-OH Total Today R53.83 - Other fatigue TSH reflex Free T4 Today R53.83 - Other fatigue Drug Screen Urine Today G4 - Migraine, unspecified, not intractable, without status migrainosus, R40.0 - Somnolence Opiates GCMS Expanded, Ur Today G4 - Migraine, unspecified, not intractable, without status migrainosus, R40.0 - Somnolence Referrals Neurology Referral G4 - Migraine, unspecified, not intractable, without status migrainosus, R26.81 - Unsteadiness on feet, R40.0 - Somnolence, R53.1 - Weakness, R53.83 - Other fatigue Gastroenterology Referral K92.1 - Melena Medications: New miscellaneous medical supply 1 walker 1 ea 0RF unsteady gait, drowsiness miscellaneous medical supply 1 shower chair with back 1 ea 0RF Unsteady gait, drowsiness, fatigue topiramate 25 mg PO BID 14 days 28 tabs 0RF Coding Level of Care Code Est Pt Level 4 (41288) Complex EM visit Add On G2211 Diagnoses Migraines G4 Fatigue R53.83 Weakness R53.1 Drowsiness R40.0 Unsteady gait R26.81 Bloody stools K92.1
[2024-02-04 11:09] VITALS: BP 100/72; PULSE 66; RESP 16; TEMP 36.4; O2SAT 99; BMI 18.3
== END 2024-02-04 13:10 | disposition home or self-care (01) ==
PROVIDERS: Visit Provider Nurse Practitioner Family
DX: G43.909 Migraine, unspecified, not intractable, without status migrainosus (principal); R53.83 Other fatigue; R53.1 Weakness; R40.0 Somnolence; R26.81 Unsteadiness on feet; K92.1 Melena

== ENCOUNTER → 2024-02-04 10:56 | Outpatient (BNVA) | payer OTHER, SELFPAY | PROVIDERS: Visit Provider Nurse Practitioner Family ==

== ENCOUNTER 2024-02-04 12:59 | Outpatient (REF) | payer OTHER, SELFPAY ==
[2024-02-04 14:51] LABS: Amphetamine Screen Urine Not Detected (Not Detect); Barbiturates, Urine Not Detected (Not Detect); Benzodiazepines Screen Urine Not Detected (Not Detect); Buprenorphine Scr Not Detected (Not Detect); Cannabinoid Screen Urine Not Detected (Not Detect); Cocaine Screen Urine Not Detected (Not Detect); Fentanyl, urine Not Detected (Not Detect); Methadone Screen, Urine Not Detected (Not Detect); Opiate Screen Urine Not Detected (Not Detect); Oxycodone Screen Urine Not Detected (Not Detect); Phencyclidine Screen Urine Not Detected (Not Detect)
[2024-02-04 15:02] LABS: MANUAL DIFF FLAG NO
[2024-02-04 15:08] LABS: Basophils Absolute Auto 0.1 X10*3/uL (0.0-0.2); Basophils Percent Auto 1.1 % (0-2); Eosinophils Absolute Auto 0.4 X10*3/uL (0.0-0.4); Eosinophils Percent Auto 5.3 % (0-4); Hematocrit 39.6 % (42.0-52.0); Hemoglobin 13.4 g/dl (14.0-18.0); Imm Gran Abs Auto 0.02 X10*3/uL (0.00-0.03); Imm Gran Pct Auto 0.3 % (0.0-0.4); Lymphocytes Absolute Auto 1.9 X10*3/uL (1.2-4.9); Lymphocytes Percent Auto 26.4 % (20-40); Mean Corpuscular HGB Conc 33.8 g/dl (31.0-36.0); Mean Corpuscular Hemoglobin 31.2 pg (27.0-33.0); Mean Corpuscular Volume 92.3 fL (80.0-98.0); Mean Platelet Volume 11.1 fL (9.4-12.4); Monocytes Absolute Auto 0.6 X10*3/uL (0.1-1.2); Monocytes Percent Auto 8.6 % (2-11); Neutrophils Absolute Auto 4.3 x10*3/uL (2.0-8.3); Neutrophils Percent Auto 58.3 % (45-73); Platelet Count 252 X10*3/uL (160-400); Red Blood Count 4.29 X10*6/uL (4.60-5.80); Red Cell Distribution Width 11.6 % (11.0-16.0); White Blood Count 7.4 X10*3/uL (4.8-10.8)
[2024-02-04 15:34] LABS: Alanine Aminotransferase 20 U/L (0-40); Albumin Level 4.6 g/dL (3.5-5.0); Alkaline Phosphatase 65 U/L (39-117); Anion Gap 10 (12-20); Aspartate Amino Transferase 20 U/L (5-37); Bilirubin Total 0.7 mg/dL (0.0-1.0); Blood Urea Nitrogen 13 mg/dL (9-16); Calcium 10.2 mg/dL (8.4-10.2); Carbon Dioxide 29 mmol/L (22-29); Chloride 106 mmol/L (96-108); Estimated Glomerular Filt Rate > 60; Glucose Random 81 mg/dL (60-115); Potassium 3.8 mmol/L (3.3-5.1); Sodium 141 mmol/L (135-145); Total Protein 7.1 g/dL (6.5-8.0)
[2024-02-04 15:42] LABS: TSH reflex Free T4 1.24 uIU/mL (0.32-4.0)
[2024-02-06 07:02] LABS: Lyme Abs Screen <0.90 index
[2024-02-10 17:38] LABS: Alphahydroxymidazolam,GCMS Ur NEGATIVE; Alphahydroxytriazolam, GCMS Ur NEGATIVE; Alprazolam, GCMS Urine NEGATIVE; Aminoclonazepam, GCMS Urine NEGATIVE; Codeine, Ur NEGATIVE; Flurazepam Metabolite,GCMS Ur NEGATIVE; Hydrocodone, Ur NEGATIVE; Hydromorphone, Ur NEGATIVE; Lorazepam GCMS Urine NEGATIVE; Morphine, Ur NEGATIVE; Nordiazepam, GCMS Urine NEGATIVE; Norhydrocodone, Ur NEGATIVE; Noroxycodone, Ur NEGATIVE; Oxazepam, GCMS Urine NEGATIVE; Oxycodone, Ur NEGATIVE; Oxymorphone, Ur NEGATIVE; Temazepam, GCMS Urine NEGATIVE
== END 2024-02-04 13:00 | disposition home or self-care (01) ==
LOC: HO.WFDLDS 12:59
PROVIDERS: Visit Provider Nurse Practitioner Family
DX: G43.909 Migraine, unspecified, not intractable, without status migrainosus (principal); R53.83 Other fatigue; R53.1 Weakness; R40.0 Somnolence; R26.81 Unsteadiness on feet; K92.1 Melena
CPT/HCPCS: 80053; 80307; 80346; 80365; 82306; 84443; 85025; 86617; 86618; 99212; G0480